=== PATIENT | male | born 1960 | race Caucasian/White ===

== ENCOUNTER 2024-06-27 09:46 | Emergency (ER) | payer SELFPAY ==
[~2024-06-27] VITALS: Ht 162.6 cm; Wt 67.1 kg
[2024-06-27 09:52] VITALS: O2SAT 99
[2024-06-27 10:17] VITALS: BP 151/70; PULSE 99; RESP 16; TEMP 36.83628; O2SAT 99
[2024-06-27] MEDS ORDERED: LISI-186 PO (17:55)
[2024-06-27] MEDS ORDERED: CARV6.2548 PO (17:55)
[2024-06-27] MEDS ORDERED: GABA-532 PO (17:55)
[2024-06-27] MEDS ORDERED: ATOR20TA65 PO (17:55)
[2024-06-27] MEDS ORDERED: INSU100I24 SUBCUT (17:55)
[2024-06-27] MEDS ORDERED: ASPI-1406 PO (17:55)
[2024-06-27] MEDS ORDERED: BUPR1TAB33 SL ×2 (17:55→22:59)
[2024-06-27] MEDS ORDERED: METF-416 PO (17:55)
[2024-06-27] MEDS ORDERED: INSU100I28 SQ (22:59)
[2024-06-27] MEDS ORDERED: ATOR20TA65 MT (22:59)
[2024-06-27] MEDS ORDERED: ASPI-1497 MT (22:59)
[2024-06-27] MEDS ORDERED: GABA-532 MT (22:59)
[2024-06-27] MEDS ORDERED: METF-874 MT (22:59)
[2024-06-27] MEDS ORDERED: CARV6.2548 MT (22:59)
[2024-06-27] MEDS ORDERED: LISI-186 MT (22:59)
== END 2024-06-27 10:25 | disposition home or self-care (01) ==
LOC: ER 09:54
DX: R10.9 Unspecified abdominal pain (principal); Z76.0 Encounter for issue of repeat prescription; Z95.0 Presence of cardiac pacemaker
CPT/HCPCS: 99281

== ENCOUNTER 2024-06-27 17:12 | Inpatient (IN) | payer OTHER ==
[~2024-06-27] VITALS: Ht 177.8 cm; Wt 67.1 kg
[2024-06-27] MEDS ORDERED: MORPHINE SULFATE 4 MG/ML INJ (FOR IV/IM USE) IV ONE (17:45)
[2024-06-27] MEDS ORDERED: METF-416 PO (17:55)
[2024-06-27] MEDS ORDERED: GABA-532 PO (17:55)
[2024-06-27] MEDS ORDERED: ASPI-1406 PO (17:55)
[2024-06-27] MEDS ORDERED: INSU100I24 SUBCUT (17:55)
[2024-06-27] MEDS ORDERED: BUPR1TAB33 SL ×2 (17:55→22:59)
[2024-06-27] MEDS ORDERED: ATOR20TA65 PO (17:55)
[2024-06-27] MEDS ORDERED: CARV6.2548 PO (17:55)
[2024-06-27] MEDS ORDERED: LISI-186 PO (17:55)
[2024-06-27] MEDS: SODIUM CHLORIDE 0.9% 1,000 ML IV ONE (17:59)
[2024-06-27] MEDS: ONDANSETRON HCL 4MG/2ML INJ IV ONE (17:59)
[2024-06-27] MEDS: MORPHINE SULFATE 4 MG/ML INJ (FOR IV/IM USE) IV NR (18:03)
[2024-06-27 18:04] LABS: BASOPHILS % 0.8 % (0.0-2.0); HEMATOCRIT. 38.5 % (42.0-52.0); HEMOGLOBIN. 12.8 g/dL (14.0-18.0); MEAN CORPUSCULAR HEMOGLOBIN 30.9 pg (28.0-32.0); MEAN CORPUSCULAR HGB CONC 33.2 g/dL (31.0-37.0); MEAN PLATELET VOLUME 8.6 fl (7.4-10.4); MONOCYTES % 11.5 % (2.0-8.0); NEUTROPHILS % 53.7 % (40.0-76.0); PLATELET 182 x1000/uL (130-400); RED BLOOD CELL COUNT 4.13 mill/uL (4.7-6.1); WHITE BLOOD COUNT 3.6 x1000/uL (4.5-11.0)
[2024-06-27 18:09] LABS: CLARITY URINE CLEAR (CLEAR); COLOR URINE YELLOW (YELLOW); GLUCOSE URINE 2+ (NEGATIVE); KETONES URINE NEGATIVE (NEGATIVE); LEUKOCYTE ESTERASE URINE NEGATIVE (NEGATIVE); NITRITE URINE NEGATIVE (NEGATIVE); OCCULT BLOOD URINE NEGATIVE (NEGATIVE); PROTEIN URINE 1+ (NEGATIVE); SPECIFIC GRAVITY URINE 1.015 (1.005-1.030)
[2024-06-27 18:09] LABS: CHLORIDE 102 mEq/L (98-107); POTASSIUM 4.4 mEq/L (3.5-5.1); SODIUM 135 mEq/L (136-145)
[2024-06-27 18:10] LABS: CARBON DIOXIDE 29 mEq/L (21-32)
[2024-06-27 18:11] LABS: CALCIUM 9.8 mg/dL (8.7-10.4)
[2024-06-27 18:15] LABS: CREATININE 1.1 mg/dL (0.6-1.3); GLUCOSE 206 mg/dL (70-105); UREA NITROGEN BLOOD 15 mg/dL (9-23)
[2024-06-27 18:17] LABS: TROPONIN I HIGH SENSITIVITY 12 ng/L (3.0-53)
[2024-06-27 18:25] LABS: *AMPHETAMINES SCREEN URINE PRESUMPTIVE POSITIVE (NEGATIVE); *BARBITURATES SCREEN URINE NEGATIVE (NEGATIVE); *BENZODIAZEPINES SCREEN URINE NEGATIVE (NEGATIVE); *COCAINE SCREEN URINE NEGATIVE (NEGATIVE)
[2024-06-27 18:26] LABS: CANNABINOID URINE SCREEN PRESUMPTIVE POSITIVE (NEGATIVE); ECSTASY MDMA SCREEN URINE NEGATIVE (NEGATIVE); METHADONE URINE SCREEN Pos (NEGATIVE); OPIATES URINE SCREEN PRESUMPTIVE POSITIVE (NEGATIVE); PHENCYCLIDINE URINE SCREEN NEGATIVE (NEGATIVE)
[2024-06-27 18:29] LABS: WBC URINE NONE SEEN /hpf (0-2)
[2024-06-27 18:30] LABS: BACTERIA URINE NONE SEEN; RBC URINE 0-2 /hpf (0-2); SQUAMOUS EPITHELIAL CELL URINE RARE /lpf (RARE/1+)
[2024-06-27] MEDS: METHADONE HCL 10MG TABLET PO SCH (18:33)
[2024-06-27 18:50] LABS: ACETAMINOPHEN < 2 ug/mL (10-30); ALANINE AMINOTRANSFERASE 33 IU/L (10-49); ALBUMIN 4.3 g/dL (3.2-4.8); ASPARTATE AMINOTRANSFERASE 46 IU/L (<34); BILIRUBIN DIRECT 0.1 mg/dL (<=3.0); BILIRUBIN TOTAL 0.3 mg/dL (0.1-1.0)
[2024-06-27 18:58] LABS: ETHANOL BLOOD < 10 mg/dL (<10)
[2024-06-27] MEDS: LABETALOL 5MG/ML 4ML INJ IV ONE (20:04)
[2024-06-27] MEDS: LORAZEPAM 2MG/ML INJ IV ONE (20:04)
[2024-06-27] MEDS ORDERED: CARV6.2548 MT (22:59)
[2024-06-27] MEDS ORDERED: ASPI-1497 MT (22:59)
[2024-06-27] MEDS ORDERED: INSU100I28 SQ (22:59)
[2024-06-27] MEDS ORDERED: LISI-186 MT (22:59)
[2024-06-27] MEDS ORDERED: ATOR20TA65 MT (22:59)
[2024-06-27] MEDS ORDERED: GABA-532 MT (22:59)
[2024-06-27] MEDS ORDERED: METF-874 MT (22:59)
[2024-06-28] MEDS ORDERED: ACETAMINOPHEN 325MG TABLET PO PRN
[2024-06-28] MEDS ORDERED: ZOLPIDEM TARTRATE 5MG TABLET PO PRN
[2024-06-28] MEDS ORDERED: ONDANSETRON HCL 4MG/2ML INJ IV PRN
[2024-06-28] MEDS ORDERED: CLONIDINE 0.2MG TABLET PO PRN
[2024-06-28] MEDS ORDERED: DIPHENHYDRAMINE 50MG/ML VIAL IV PRN
[2024-06-28] MEDS: HYDRALAZINE 20MG/ML VIAL IV PRN (00:35)
[2024-06-28 01:56] VITALS: BP 179/80; PULSE 80; RESP 18; TEMP 36.696
[2024-06-28] MEDS: MVI, ADULT NO.1 10 ML, FOLIC ACID 1 MG, THIAMINE HCL 100 MG in SODIUM CHLORIDE 0.9% 1,0... IV NR (02:41)
[2024-06-28] MEDS: HYDRALAZINE HCL 50MG TABLET PO SCH (06:16)
[2024-06-28] MEDS: ACETAMINOPHEN 325MG TABLET PO PRN (06:20)
[2024-06-28 07:53] VITALS: BP 105/75; PULSE 80; RESP 18; TEMP 36.3918; O2SAT 98
[2024-06-28] MEDS: AMLODIPINE 5MG TABLET PO SCH (08:02)
[2024-06-28 12:00] VITALS: BP 145/66; PULSE 78; RESP 14; TEMP 35.89176; O2SAT 97
[2024-06-28 15:55] VITALS: BP 146/75; PULSE 66; TEMP 97.5; O2SAT 97
[2024-06-28 16:00] VITALS: BP 151/81; PULSE 99; RESP 15; TEMP 36.44736; O2SAT 97
[2024-06-28] MEDS ORDERED: METHADONE HCL 10MG TABLET PO NR (16:30)
[2024-06-28] MEDS ORDERED: NALOXONE HCL 0.4MG/ML VIAL IV PRN (17:00)
[2024-06-28 17:03] VITALS: BP 148/78; PULSE 93; RESP 15
[2024-06-28] MEDS: METHADONE HCL 10MG TABLET PO NR (17:03)
== END 2024-06-28 20:32 | disposition home or self-care (01) | DRG 52 ==
LOC: EDBD → ER 17:12 → EDBEDREQ 18:57 → EDBEDREQTM 20:45 → EDBD 22:14 → 8WST 22:14
PROVIDERS: ADMIT Internal Medicine; ATTEND Internal Medicine
DX: G92.8 Other toxic encephalopathy (principal); F11.23 Opioid dependence with withdrawal; I10 Essential (primary) hypertension; Z87.891 Personal history of nicotine dependence; Z95.0 Presence of cardiac pacemaker
CPT/HCPCS: 36415; 71045; 80048; 80076; 80305; 80307; 80320; 80329; 81003; 84484; 85025; 93005; 99291; J0360; J2060; J2270; J2405; J3411; J3490; J7030; G0480